=== PATIENT | male | born 1980 | race Caucasian/White ===

== ENCOUNTER 2016-10-13 11:46 | Emergency (ER) | payer BC ==
--- NOTE | 2016-10-13 13:16 | XR ---
EXAMINATION TYPE: XR chest 2V DATE OF EXAM: 10/13/2016 12:49 PM COMPARISON: NONE INDICATION: Pain and back difficulty breathing TECHNIQUE: Single frontal view of the chest is obtained. FINDINGS: The heart size is normal. The pulmonary vasculature is normal. The lungs are clear. IMPRESSION: 1. No acute pulmonary process.
[2016-10-13] MEDS ORDERED: KETOROLAC 60 MG/2 ML VIAL IM STA (13:49)
--- NOTE | 2016-10-13 14:45 | XR ---
EXAMINATION TYPE: XR lumbosacral spine min 4V DATE OF EXAM: 10/13/2016 2:09 PM COMPARISON: NONE HISTORY: Pain flank x5 days TECHNIQUE: 5 view lumbar spine FINDINGS: There 5 lumbar-type vertebral bodies. Pedicles are intact. Disc heights are preserved. Vert ebral body heights are preserved. Facets are normal. IMPRESSION: 1. Normal lumbar spine
--- NOTE | 2016-10-13 14:56 | ED ---
Back Pain HPI - General Chief Complaint: Back Pain/Injury Stated Complaint: back pain Time Seen by Provider: 10/13/16 13:32 Source: patient Limitations: no limitations - History of Present Illness Initial Comments: Patient is a 36-year-old male presenting to the emergency department with complaints of right and left posterior thoracic back pain. Patient states that he lifts heavy items for work and believes he may have injured his back. Onset of symptoms 3 days ago, progressively getting worse. Patient describes pain as tight, exacerbated with movement, relieved with rest, denies associated symptoms such as fevers, chills, nausea, vomiting, shortness of breath, chest pain, abdominal pain, urinary incontinence, fecal incontinence, saddle paresthesia, numbness or tingling. Patient denies IV drug abuse. Patient denies recent illness. Patient states that he has had problems with chronic low back pain in the past has seen Dr. Bland approximately one year ago when he underwent an MRI of his spine. In reviewing old records, the MRI was essentially negative. Patient denies treatment prior to arrival. - Related Data Previous Rx's Medication Instructions Recorded Ibuprofen [Motrin] 800 mg PO TID #20 tab 10/13/16 Orphenadrine [Norflex] 100 mg PO Q12H #6 tablet.er 10/13/16 Allergies Allergy/AdvReac Type Severity Reaction Status Date / Time No Known Allergies Allergy Verified 10/13/16 13:03 Review of Systems ROS Statement: Those systems with pertinent positive or pertinent negative responses have been documented in the HPI. ROS Other: All systems not noted in ROS Statement are negative. Past Medical History Past Medical History: No Reported History History of Any Multi-Drug Resistant Organisms: None Reported Past Surgical History: No Surgical Hx Reported Past Psychological History: Anxiety, Panic Disorder Smoking Status: Current every day smoker Past Alcohol Use History: Rare Past Drug Use History: None Reported General Exam Limitations: no limitations General appearance: alert, in no apparent distress Head exam: Present: atraumatic, normocephalic, normal inspection Eye exam: Present: normal appearance Neck exam: Present: normal inspection, full ROM. Absent: tenderness, lymphadenopathy Respiratory exam: Present: normal lung sounds bilaterally. Absent: respiratory distress, wheezes, rales, rhonchi, stridor Cardiovascular Exam: Present: regular rate, normal rhythm, normal heart sounds GI/Abdominal exam: Present: soft, normal bowel sounds Extremities exam: Present: normal inspection, full ROM, normal capillary refill Back exam: Present: normal inspection, tenderness, paraspinal tenderness ( Bilateral tenderness from site of inferior scapula to mid low back). Absent: full ROM (Secondary to pain), vertebral tenderness Neurological exam: Present: alert, oriented X3, CN II-XII intact, normal gait, reflexes normal. Absent: motor sensory deficit Psychiatric exam: Present: normal affect, normal mood Skin exam: Present: warm, dry, intact, normal color Course Vital Signs 10/13/16 10/13/16 12:19 15:00 Temperature 98.3 F 97.8 F Pulse Rate 83 80 Respiratory 18 16 Rate Blood Pressure 123/78 130/78 O2 Sat by Pulse 99 98 Oximetry Medical Decision Making - Medical Decision Making Acute mechanical back pain suspect secondary to lifting boxes. X-ray of lumbar spine negative for fracture. Patient given 1 dose of Toradol with relief. Patient instructed to follow up with primary care physician and orthopedic service as directed. Discharge instructions and return parameters reviewed. Patient agrees with treatment plan. - Radiology Data Radiology results: report reviewed Lumbosacral spine x-ray: Normal lumbar spine. Disposition Clinical Impression: Repetitive strain injury of mid back Disposition: HOME SELF-CARE Condition: Good Instructions: Acute Low Back Pain (ED) Additional Instructions: Continue Motrin 800 mg every 8 hours as needed for pain. May use warm compresses for pain. Avoid bed rest. Continue muscle relaxers as needed. Follow-up with primary care physician as directed. Follow-up with orthopedic service as needed. Please return to the emergency department if symptoms do not improve or get worse. Prescriptions: Ibuprofen [Motrin] 800 mg PO TID #20 tab Orphenadrine [Norflex] 100 mg PO Q12H #6 tablet.er Referrals: Olman Sands MD [Primary Care Provider] - 1-2 days Frederic Barbosa DO [Doctor of Osteopathic Medicine] - 1-2 days Time of Disposition: 14:55
[2016-10-13 15:03] VITALS: BP 130/78; PULSE 80; RESP 16; TEMP 97.8
== END 2016-10-13 15:04 | disposition home or self-care (01) ==
LOC: EC 11:46
DX: S29.012A Strain of muscle and tendon of back wall of thorax, initial encounter (principal); F17.200 Nicotine dependence, unspecified, uncomplicated; X50.0XXA Overexertion from strenuous movement or load, initial encounter
CPT/HCPCS: 71020; 72110; 99283; 96372; J1885

== ENCOUNTER 2017-01-10 21:56 | Emergency (ER) | payer BC ==
[2017-01-10 22:16] VITALS: BP 130/84; PULSE 92; RESP 18; TEMP 98.4
--- NOTE | 2017-01-14 08:31 | CDI ---
Dear Simba Solorio MD: Please do addendum ER document. Thank you, Jamar Pinto, Acid Blower. If you have any questions, please contact [employer] at [phone]. It will not let me retrieve the document and I do not know what addendum you are speaking of. Dr. Osmin DAVIS
== END 2017-01-10 22:34 | disposition home or self-care (01) ==
LOC: EC 21:56
DX: Z02.89 Encounter for other administrative examinations (principal)

== ENCOUNTER 2017-01-19 10:38 | Emergency (ER) | payer BC ==
[2017-01-19 11:01] VITALS: RESP 18; TEMP 98.3
--- NOTE | 2017-01-19 11:17 | ED ---
General Adult HPI - General Chief complaint: Fall Stated complaint: right hand pain Time Seen by Provider: 01/19/17 10:57 Source: patient, RN notes reviewed Mode of arrival: ambulatory Limitations: no limitations - History of Present Illness Initial comments: Patient 36-year-old male who presents emergency room today with a chief fall occurred this morning. He states he tripped fell onto the right hand. Does admit to pain locally over the fourth and fifth metacarpals and digits. Patient denies any head injury or loss conscious. He denies any other complaints or associated symptoms. Patient denies any recent fever, chills, shortness of breath, chest pain, back pain, abdominal pain, nausea or vomiting, numbness or tingling, dysuria or hematuria, constipation or diarrhea, headaches or visual changes, or any other complaints. - Related Data Previous Rx's Medication Instructions Recorded Ibuprofen [Motrin] 600 mg PO Q6HR PRN #40 day 01/19/17 Allergies Allergy/AdvReac Type Severity Reaction Status Date / Time No Known Allergies Allergy Verified 01/19/17 10:57 Review of Systems ROS Statement: Those systems with pertinent positive or pertinent negative responses have been documented in the HPI. ROS Other: All systems not noted in ROS Statement are negative. Past Medical History Past Medical History: No Reported History History of Any Multi-Drug Resistant Organisms: None Reported Past Surgical History: Tonsillectomy Past Psychological History: Anxiety, Panic Disorder Smoking Status: Current every day smoker Past Alcohol Use History: Rare Past Drug Use History: None Reported General Exam - General Exam Comments Initial Comments: General: The patient is awake and alert, in no distress, and does not appear acutely ill. Neck: The neck is supple, there is no tenderness or JVD. Cardiovascular: There is a regular rate and rhythm. No murmur, rub or gallop is appreciated. Respiratory: Lungs are clear to auscultation, respirations are non-labored, breath sounds are equal. No wheezes, stridor, rales, or rhonchi. Musculoskeletal: patient does have some mild swelling and bruising over the fourth and fifth digits. Patient does show full range motion of both flexion and extension. Sensations are intact with cap refill less than 2 seconds. Patient is tender to palpation over the fourth and fifth metacarpal and MCP joint. Neurological: A&O x 3. CN II-XII intact, There are no obvious motor or sensory deficits. Coordination appears grossly intact. Speech is normal. Skin: Skin is warm and dry and no rashes or lesions are noted. Psychiatric: Normal mood and affect. Limitations: no limitations Course Vital Signs 01/19/17 10:58 Temperature 98.3 F Pulse Rate 85 Respiratory 18 Rate Blood Pressure 123/74 O2 Sat by Pulse 98 Oximetry Medical Decision Making - Medical Decision Making X-ray negative for any acute fracture dislocation. Results were discussed with patient. Patient advised to ice elevate and follow-up with orthopedics in 7-10 days if symptoms persist. Disposition Clinical Impression: Hand contusion Disposition: HOME SELF-CARE Condition: Good Instructions: Contusion in Adults (ED) Additional Instructions: Please continue to ice elevate the affected area. Please use ibuprofen for pain. Please follow-up with the family doctor or orthopedic in 7-10 days for repeat x-rays if symptoms persist. Prescriptions: Ibuprofen [Motrin] 600 mg PO Q6HR PRN #40 day PRN Reason: Pain Referrals: Olman Sands MD [Primary Care Provider] - 1-2 days Shayne Dey MD [STAFF PHYSICIAN] - 1-2 days Time of Disposition: 12:03
--- NOTE | 2017-01-19 11:30 | XR ---
Right hand HISTORY: Trauma and pain 3 views of the right hand Comparison right hand 04/06/2015 Bone mineralization, joint spaces and alignment are maintained IMPRESSION: No acute fracture or dislocation.
[2017-01-19 12:44] VITALS: BP 115/71; PULSE 72
== END 2017-01-19 12:45 | disposition home or self-care (01) ==
LOC: EC 10:38
DX: S60.221A Contusion of right hand, initial encounter (principal); F17.200 Nicotine dependence, unspecified, uncomplicated; W10.1XXA Fall (on)(from) sidewalk curb, initial encounter; Y93.02 Activity, running; Y92.480 Sidewalk as the place of occurrence of the external cause
CPT/HCPCS: 99283

== ENCOUNTER 2017-07-07 21:23 | Emergency (ER) | payer OTHER ==
[2017-07-07 21:30] VITALS: BP 133/63; PULSE 71; RESP 18; TEMP 97.8
--- NOTE | 2017-07-07 21:50 | ED ---
Skin/Abscess/FB HPI - General Chief complaint: Skin/Abscess/Foreign Body Stated complaint: finger infection Time Seen by Provider: 07/07/17 21:32 Source: patient Mode of arrival: ambulatory Limitations: no limitations - History of Present Illness Initial comments: 36-year-old male patient presents to the emergency department today for evaluation of an infection surrounding the nail to the right middle finger. Patient states that he was biting his nails approximately a week ago, pulled off a hangnail. States the area did bleed. States over the last week the area or surrounding the nail has become red and swollen. Patient states that the redness seems to be spreading up his finger at this point. He states he has tried poking it several times without any drainage. He denies any fevers or chills. Denies any difficulty with range of motion to the finger. States that he has had these infections in the past. Patient denies any recent rash, shortness breath, chest pain, abdominal pain, nausea, vomiting, diarrhea, constipation, back pain, numbness, tingling, dizziness, weakness, hematuria, dysuria, urinary urgency, urinary frequency, headache, visual changes, or any other complaints. - Related Data Previous Rx's Medication Instructions Recorded Amoxicillin/Potassium Clav 1 tab PO Q12HR #20 tab 04/18/17 [Augmentin 875-125 Tablet] Promethaz-Cod 6.25-10 mg/5 ml 5 ml PO Q6HR PRN #120 ml 04/18/17 [Phenergan with Codeine] Amoxic-Pot Clav 875-125Mg 1 tab PO Q12HR #14 tablet 07/07/17 [Augmentin 875-125] Ibuprofen [Motrin] 600 mg PO Q8HR PRN #30 tab 07/07/17 Allergies Allergy/AdvReac Type Severity Reaction Status Date / Time No Known Allergies Allergy Verified 07/07/17 21:29 Review of Systems ROS Statement: Those systems with pertinent positive or pertinent negative responses have been documented in the HPI. ROS Other: All systems not noted in ROS Statement are negative. Past Medical History Past Medical History: No Reported History History of Any Multi-Drug Resistant Organisms: None Reported Past Surgical History: Tonsillectomy Past Psychological History: Anxiety, Depression, Panic Disorder Smoking Status: Current every day smoker Past Alcohol Use History: Rare Past Drug Use History: None Reported General Exam Limitations: no limitations General appearance: alert, in no apparent distress, other (Well-developed, well- nourished adult male patient in no acute distress. Vital signs upon presentation were temperature 97.8F, pulse 71, respirations 18, blood pressure 133/63, pulse ox 100% on room air.) Eye exam: Present: normal appearance, PERRL, EOMI. Absent: scleral icterus, conjunctival injection, periorbital swelling ENT exam: Present: normal exam, normal oropharynx, mucous membranes moist Neck exam: Present: normal inspection. Absent: tenderness, meningismus, lymphadenopathy Respiratory exam: Present: normal lung sounds bilaterally. Absent: respiratory distress, wheezes, rales, rhonchi, stridor Cardiovascular Exam: Present: regular rate, normal rhythm, normal heart sounds. Absent: systolic murmur, diastolic murmur, rubs, gallop, clicks GI/Abdominal exam: Present: soft, normal bowel sounds. Absent: distended, tenderness, guarding, rebound, rigid Extremities exam: Present: full ROM, normal capillary refill, other (Patient has swelling and erythema of the proximal nailfold on the middle finger right hand. Area is fluctuant. Erythema has spread of the finger proximally to the DIP joint. Palmar aspect of the finger is soft and nontender. Skin is otherwise pink, warm, and dry. Cap refills less than 3 seconds. Radial pulse 2 + and equal bilaterally.). Absent: normal inspection, tenderness, pedal edema, joint swelling, calf tenderness Neurological exam: Present: alert, oriented X3, CN II-XII intact Psychiatric exam: Present: normal affect, normal mood Skin exam: Present: warm, dry, intact, normal color. Absent: rash Course Vital Signs 07/07/17 21:27 Temperature 97.8 F Pulse Rate 71 Respiratory 18 Rate Blood Pressure 133/63 O2 Sat by Pulse 100 Oximetry Procedures - Incision & Drainage Consent Obtained: verbal consent Indication: Paronychia Site: other (Right middle finger) Size (cm): 1 Anesthetic Used: lidocaine 1% Amount (mLs): 1 I&D Cleaning Method: Betadine Sterile Field Used?: No Scalpel Used: #11 Needle Aspiration Performed?: No Irrigation Performed?: No I&D Drainage Obtained: Pus, Blood Culture Obtained?: No Patient Tolerated Procedure: well Medical Decision Making - Medical Decision Making 36 old male patient presented to the emergency department for a right middle finger infection. Physical exam findings are consistent with paronychia. We did prep the site with Betadine, anesthetized using lidocaine, and did drain the area using an 11 blade scalpel. Did have drainage of pus and blood. Patient was educated regarding warm soaks. 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 He will be given a prescription for ibuprofen for pain control. He is instructed to follow -up with his primary care physician for recheck in 1-2 days. He is instructed to return here immediately for any new, worsening, or concerning symptoms. He verbalizes understanding and agrees with this plan. Disposition Clinical Impression: Paronychia Disposition: HOME SELF-CARE Condition: Good Instructions: Paronychia (ED), Warm Compress or Soak (ED) Additional Instructions: Complete antibiotic prescription in full. Soak hand at least 3 times daily in warm water. Cover with a topical antibiotic such as Neosporin. Follow-up with your primary care physician for recheck in 1-2 days. Return here immediately for any new, worsening, or concerning symptoms. Prescriptions: Amoxic-Pot Clav 875-125Mg [Augmentin 875-125] 1 tab PO Q12HR #14 tablet Ibuprofen [Motrin] 600 mg PO Q8HR PRN #30 tab PRN Reason: Pain Referrals: Olman Sands MD [Primary Care Provider] - 1-2 days Time of Disposition: 21:50
[2017-07-07] MEDS ORDERED: AMOXIC-POT CLAV 875MG STARTER 2 EACH TABLET PO STA (21:57)
== END 2017-07-07 22:08 | disposition home or self-care (01) ==
LOC: EC 21:23
DX: L03.011 Cellulitis of right finger (principal); F17.200 Nicotine dependence, unspecified, uncomplicated
CPT/HCPCS: 10060; 99282